=== PATIENT | female | born 1980 | race Caucasian/White ===

== ENCOUNTER 2017-08-04 18:23 | Emergency (ER) | payer BC, SELFPAY ==
[2017-08-04 19:24] VITALS: BP 128/81; PULSE 91; RESP 20; TEMP 36.8; O2SAT 100; BMI 28.0
--- NOTE | 2017-08-04 19:43 | HMH.EDUTC ---
[facility] [place] Dis[place] Clinical Impression: Otitis media Qualifiers: Otitis media type: suppurative Chronicity: acute Laterality: bilateral Recurrence: not specified as recurrent Spontaneous tympanic membrane rupture: without spontaneous rupture Qualified Code(s): H66.003 - Acute suppurative otitis media without spontaneous rupture of ear drum, bilateral Disposition: Home, Self-Care Condition on Discharge: Good Instructions: Middle Ear Infection, Ear Infections (Alternative Therapy) Additional Instructions: Or ibuprofen as needed for pain or fever Follow-up with primary care this week if no improvement If symptoms worsen or do not improve return or be seen in the ER Prescriptions: cephALEXin [Keflex 500mg Cap] 500 mg PO BID 10 Days #20 cap Time of Disposition: 19:54 (has taken amoxicillin in past) Medical Decision Making Vital Signs: 08/04/17 19:24 Temperature 98.3 F Temperature Source Temporal Artery Scan Pulse Rate [Brachial] 91 H Respiratory Rate 20 Blood Pressure [Right Arm] 128/81 Blood Pressure Mean [Right Arm] 96 Blood Pressure Source [Right Arm] Automatic Cuff Blood Pressure Position [Right Arm] Sitting 02 Sat by Pulse Oximetry 100 Oxygen Delivery Method Room Air - Angel Inquiry Pt receiving controlled substance: No [facility] [place] HPI - General Chief complaint: Urgent Treatment Center Stated complaint: ear, congestion Time Seen by Provider: 08/04/17 19:43 Mode of Arrival: Ambulatory Source of Information: Patient Limitations: No Limitations Description of Symptoms (Recalled from Triage Doc. by RN): EAR PRESSURE X 1 WEEK HEENT Symptoms (Recalled from RN notes): Yes Resp Symptoms (Recalled from RN notes): No Skin Symptoms (Recalled from RN notes): No MS Symptoms (Recalled from RN notes): No Functional Status (Recalled from RN notes): NA - History of Present Illness Provider Complaint: 7-year-old female presents for bilateral ear pain. Patient states she has had fullness in her ear since [place] but just recently started with ear pain. - Related Data Home Medications Medication Instructions Recorded Confirmed Fenugreek Seed Extract [Fenugreek] 500 mg PO DAILY 08/04/17 08/04/17 Previous Rx's Medication Instructions Recorded cephALEXin [Keflex 500mg Cap] 500 mg PO BID 10 Days #20 cap 08/04/17 Allergies Allergy/AdvReac Type Severity Reaction Status Date / Time Penicillins Allergy Verified 08/04/17 19:26 - Worker's Comp Is this a Worker's Comp case?: No [facility] History I have reviewed the patient's past medical history: Yes - *Social History Alcohol Intake: never - Psychiatric History Expresses thoughts of harming self/others: None Suicide Plan Description: No Plan ROS Obtained: Yes All systems reviewed & no additional complaints - Constitutional Constitutional: Reports system reviewed and no additional complaints, except as docu - Eyes Eyes: Reports system reviewed and no additional complaints, except as docu - ENT Ears, Nose, Mouth, and Throat: Reports system reviewed and no additional complaints, except as docu - Cardiovascular Cardiovascular: Reports system reviewed and no additional complaints, except as docu - Respiratory Respiratory: Yes system reviewed and no additional complaints, except as docu - Gastrointestinal Gastrointestingal: Reports: system reviewed and no additional complaints, except as docu - Musculoskeletal Musculoskeletal: Reports system reviewed and no additional complaints, except as docu - Integumentary/Breasts Skin/Breast: Reports system reviewed and no additional complaints, except as docu - Neurologic Neurologic: Reports system reviewed and no additional complaints, except as docu - Endocrine Endocrine: Reports system reviewed and no additional complaints, except as docu - Hematologic/Lymphatic Henatologic/Lymphatic: Reports system reviewed and no additional complaints, except as docu - Allergic/Immunologic Allergic/Immun
--- NOTE | 2017-08-04 19:49 | ED_ITS ---
[facility] [place] Clinical Impression: Otitis media Qualifiers: Otitis media type: suppurative Chronicity: acute Laterality: bilateral Recurrence: not specified as recurrent Spontaneous tympanic membrane rupture: without spontaneous rupture Qualified Code(s): H66.003 - Acute suppurative otitis media without spontaneous rupture of ear drum, bilateral Disposition: Home, Self-Care Condition on Discharge: Good Instructions: Middle Ear Infection, Ear Infections (Alternative Therapy) Additional Instructions: Or ibuprofen as needed for pain or fever Follow-up with primary care this week if no improvement If symptoms worsen or do not improve return or be seen in the ER Prescriptions: cephALEXin [Keflex 500mg Cap] 500 mg PO BID 10 Days #20 cap Time of Disposition: 19:54 (has taken amoxicillin in past) Medical Decision Making Vital Signs: 08/04/17 19:24 Temperature 98.3 F Temperature Source Temporal Artery Scan Pulse Rate [Brachial] 91 H Respiratory Rate 20 Blood Pressure [Right Arm] 128/81 Blood Pressure Mean [Right Arm] 96 Blood Pressure Source [Right Arm] Automatic Cuff Blood Pressure Position [Right Arm] Sitting 02 Sat by Pulse Oximetry 100 Oxygen Delivery Method Room Air - Angel Inquiry Pt receiving controlled substance: No [facility] - General Chief complaint: Urgent Treatment Center Stated complaint: ear, congestion Time Seen by Provider: 08/04/17 19:43 Mode of Arrival: Ambulatory Source of Information: Patient Limitations: No Limitations Description of Symptoms (Recalled from Triage Doc. by RN): EAR PRESSURE X 1 WEEK HEENT Symptoms (Recalled from RN notes): Yes Resp Symptoms (Recalled from RN notes): No Skin Symptoms (Recalled from RN notes): No MS Symptoms (Recalled from RN notes): No Functional Status (Recalled from RN notes): NA - History of Present Illness Provider Complaint: 7-year-old female presents for bilateral ear pain. Patient states she has had fullness in her ear since [place] but just recently started with ear pain. - Related Data Home Medications Medication Instructions Recorded Confirmed Fenugreek Seed Extract [Fenugreek] 500 mg PO DAILY 08/04/17 08/04/17 Previous Rx's Medication Instructions Recorded cephALEXin [Keflex 500mg Cap] 500 mg PO BID 10 Days #20 cap 08/04/17 Allergies Allergy/AdvReac Type Severity Reaction Status Date / Time Penicillins Allergy Verified 08/04/17 19:26 - Worker's Comp Is this a Worker's Comp case?: No [facility] History I have reviewed the patient's past medical history: Yes - *Social History Alcohol Intake: never - Psychiatric History Expresses thoughts of harming self/others: None Suicide Plan Description: No Plan ROS Obtained: Yes All systems reviewed & no additional complaints - Constitutional Constitutional: Reports system reviewed and no additional complaints, except as docu - Eyes Eyes: Reports system reviewed and no additional complaints, except as docu - ENT Ears, Nose, Mouth, and Throat: Reports system reviewed and no additional complaints, except as docu - Cardiovascular Cardiovascular: Reports system reviewed and no additional complaints, except as docu - Respiratory Respiratory: Yes system reviewed and no additional complaints, except as docu - Gastrointestinal Gastrointestingal: Report
== END 2017-08-04 19:58 | disposition home or self-care (01) ==
PROVIDERS: Emergency Provider Nurse Practitioner Family
DX: H66.003 Acute suppurative otitis media without spontaneous rupture of ear drum, bilateral (principal); Z88.0 Allergy status to penicillin
CPT/HCPCS: 99201

== ENCOUNTER 2020-10-30 17:51 | Emergency (ER) | payer BC, SELFPAY ==
[2020-10-30 18:56] VITALS: PULSE 73; RESP 19; TEMP 36.8; O2SAT 99; BMI 29.6
--- NOTE | 2020-10-30 19:07 | HMH.EDUTC ---
[facility] [place] Impression: Otitis media Qualifiers: Otitis media type: unspecified Laterality: left Qualified Code(s): H66.92 - Otitis media, unspecified, left ear Disposition: Home, Self-Care Condition on Discharge: Good Instructions: Cephalexin, Middle Ear Infection Additional Instructions: Take medications as prescribed *Monitor Temp, Over the counter Motrin or Tylenol as directed/as needed Tylenol every 4 hours and Motrin every 6 hours (as long as your family doctor has told you that you can take it) for fever or pain. and straight to ER if unable to lower temp less than 101.0 after medication given *Warm salt water gargles may help to soothe the throat *Throat Lozenges *Warm fluids like tea with honey may help to soothe the throat *Sleep elevated *Humidifier/Vaporizer *Flonase 2 sprays in each nostril daily but be aware that it may take 2-3 days before you notice improvement Follow up IMMEDIATELY for new or worsening symptoms or no Noticeable improvement over the next 48-72 hours. 911 for difficulty breathing or swallowing Prescriptions: cephALEXin [cephALEXin 500mg capsule*] 500 mg PO BID 10 Days #20 cap Transmission Status: Pending to [facility] # Fluticasone Propionate [Flonase 50mcg nasal spray 16gm] 1 spr NS DAILY #1 bottle Transmission Status: Pending to [facility] # Referrals: PCP,No [Primary Care Provider] - As needed Time of Disposition: 19:18 Medical Decision Making - Angel Inquiry Pt receiving controlled substance: No Angel was queried for this patient: No Vital Signs: 10/30/20 18:56 Temperature 98.2 F Temperature Source Oral Pulse Rate [Right Brachial] 73 Respiratory Rate 19 02 Sat by Pulse Oximetry 99 Oxygen Delivery Method Room Air Medical Decision Narrative: Patient states that she is allergic to PCN but has taken cephalexin in the past without complications or reactions [facility] [place] General Stated complaint: Possible L ear infection Time Seen by Provider: 10/30/20 19:07 Mode of Arrival: Ambulatory Source of Information: Patient Limitations: No Limitations Description of Symptoms (Recalled from Triage Doc. by RN): LEFT EAR PAIN HEENT Symptoms (Recalled from RN notes): Yes Resp Symptoms (Recalled from RN notes): No Skin Symptoms (Recalled from RN notes): No MS Symptoms (Recalled from RN notes): No Functional Status (Recalled from RN notes): WNL - History of Present Illness Provider Complaint: Patient states that she has been having pain in her left ear for over a week and feeling pressure States that she has had ear infections in the past and feels like she has one State that she feels pressure like pain from ear going down into her throat so she came in to get checked - Related Data Previous Rx's Medication Instructions Recorded cephALEXin [Keflex 500mg Cap] 500 mg PO Q12H 10 Days #20 cap 08/29/19 Fluticasone Propionate [Flonase 1 spr NS DAILY #1 bottle 10/30/20 50mcg nasal spray 16gm] cephALEXin [cephALEXin 500mg 500 mg PO BID 10 Days #20 cap 10/30/20 capsule*] Allergies Allergy/AdvReac Type Severity Reaction Status Date / Time Penicillins Allergy Verified 08/29/19 18:35 - Worker's Comp Is this a Worker's Comp case?: No [facility] History - Hepatitis A Screen Drug use history?: No High risk sexual behaviors?: No History of sexually transmitted infection?: No Currently employed?: No Childcare worker?: No Do you have indoor plumbing?: Yes Do you have electricity?: Yes Attestation statement:: This patient has been screened for Hepatitis A risk factors. I have reviewed the patient's past medical history: Yes Medical History: Denies:: Diabetes Mellitus Type 2 Laterality Cases: Bilateral: Myringotomy (Ear Tubes) - Social History Smoking Status: Never smoker Alcohol Intake: never Occupational Status: other Household Members: spouse, children ROS Obtained: Yes All systems reviewed & no addition
[2020-10-30 19:19] VITALS: BP 114/78; PULSE 73; RESP 19; TEMP 36.8; O2SAT 99
== END 2020-10-30 19:25 | disposition home or self-care (01) ==
PROVIDERS: Emergency Provider Nurse Practitioner
DX: H66.92 Otitis media, unspecified, left ear (principal); E11.9 Type 2 diabetes mellitus without complications
CPT/HCPCS: 99202; G0463